=== PATIENT | female | born 1980 | race Caucasian/White ===

== ENCOUNTER 2025-03-25 10:22 | Emergency (ER) | payer OTHER ==
[2025-03-25] MEDS: methylPREDNISolone Sodium Succinate 125 MG/2 ML SDV IVPUSH ONE (10:49)
[2025-03-25] MEDS: Lactated Ringers 1,000 ML IV SCH ×2 (10:49→12:53)
[2025-03-25] MEDS: Famotidine 20 MG/2 ML SDV IVPUSH ONE (10:49)
[2025-03-25] MEDS: Ketorolac 30 MG/ML SDV IVPUSH ONE (13:43)
[2025-03-25 14:40] LABS: BASOPHILS ABSOLUTE AUTO 0.01 K/uL (0.00-0.20); BASOPHILS PERCENT AUTO 0.1 % (0.0-1.0); HEMATOCRIT 38.8 % (37.0-47.0); HEMOGLOBIN 13.4 g/dL (12.0-16.0); IMMATURE GRAN ABSOLUTE AUTO 0.05 K/uL (0.00-0.05); IMMATURE GRAN PERCENT AUTO 0.4 % (0.0-0.4); LYMPHOCYTES ABSOLUTE AUTO 0.63 K/uL (1.00-4.80); LYMPHOCYTES PERCENT AUTO 5.5 % (24.0-44.0); MEAN CORPUSCULAR HEMOGLOBIN 32.8 pg (28.0-32.0); MEAN CORPUSCULAR HGB CONC 34.5 g/dL (32.0-36.0); MEAN CORPUSCULAR VOLUME 95.1 fL (83.0-99.0); MONOCYTES ABSOLUTE AUTO 0.08 K/uL (0.00-0.80); MONOCYTES PERCENT AUTO 0.7 % (0.0-8.0); NEUTROPHILS ABSOLUTE AUTO 10.72 K/uL (1.80-7.70); NEUTROPHILS PERCENT AUTO 93.3 % (41.0-71.0); PLATELET COUNT,PLT 351 K/uL (150-400); RED BLOOD CELL COUNT 4.08 M/uL (4.10-5.30); WHITE BLOOD CELL COUNT,WBC 11.49 K/uL (3.9-11.3)
[2025-03-25 15:12] LABS: ALBUMIN 3.8 g/dL (3.4-5.0); BILIRUBIN TOTAL 0.3 mg/dL (0.2-1.0); CALCIUM 9.6 mg/dL (8.5-10.1); CREATININE 1.2 mg/dL (0.6-1.0); EST CRCL DRUG DOSING (CG) 56.36 mL/min; MAGNESIUM 1.9 mg/dL (1.8-2.4); POTASSIUM,K 3.2 mmol/L (3.5-5.1); PROTEIN TOTAL,TP 7.7 g/dL (6.4-8.2); TSH ULTRASENSITIVE 1.64 uIU/mL (0.36-3.74)
== END 2025-03-25 17:50 | disposition home or self-care (01) ==
LOC: EDBD 10:22 → MW.ED 10:22
DX: T78.40XA Allergy, unspecified, initial encounter (principal); Z75.3 Unavailability and inaccessibility of health-care facilities; Z91.018 Allergy to other foods
CPT/HCPCS: 36415; 71045; 80053; 83735; 83880; 84443; 84484; 85025; 93005; 96374; 96375; 99285; J1885; J2919; J7120; 93010; 99283

== ENCOUNTER 2025-07-13 12:22 | Emergency (ER) | payer BC, OTHER ==
[2025-07-13] MEDS: methylPREDNISolone Sodium Succinate 125 MG/2 ML SDV IVPUSH ONE (12:57)
[2025-07-13] MEDS: Ondansetron 4 MG/2 ML SDV IVPUSH ONE (12:57)
== END 2025-07-13 16:16 | disposition home or self-care (01) ==
LOC: MW.ED 12:22
DX: T78.1XXA Other adverse food reactions, not elsewhere classified, initial encounter (principal); I10 Essential (primary) hypertension; Z88.5 Allergy status to narcotic agent; Z91.018 Allergy to other foods; Z79.899 Other long term (current) drug therapy
CPT/HCPCS: 96374; 96375; 99284; J1308; J2405; J2919

== ENCOUNTER 2025-08-04 12:12 | Emergency (ER) | payer BC ==
[2025-08-04] MEDS: methylPREDNISolone Sodium Succinate 125 MG/2 ML SDV IVPUSH ONE (12:32)
[2025-08-04] MEDS: diphenhydrAMINE 50 MG/ML SDV IVPUSH ONE (12:32)
[2025-08-04] MEDS: Lidocaine 2% Viscous Solution 15 ML UD PO ONE (13:36)
== END 2025-08-04 17:04 | disposition home or self-care (01) ==
LOC: MW.ED 12:12
DX: T78.04XA Anaphylactic reaction due to fruits and vegetables, initial encounter (principal); I10 Essential (primary) hypertension; Z91.018 Allergy to other foods; Z75.3 Unavailability and inaccessibility of health-care facilities; Z79.899 Other long term (current) drug therapy; Z88.5 Allergy status to narcotic agent
CPT/HCPCS: 96361; 96374; 96375; 99284; J1200; J1308; J2919; J3490; J7030; A9270-GY

== ENCOUNTER 2025-08-23 06:41 | Day surgery (SDC) | payer BC ==
[~2025-08-23 06:41] MED LIST: Albuterol 0.083% 2.5 MG/3 ML Neb Soln NEB PRN; Naloxone 0.4 MG/ML SDV IVPUSH PRN; Ondansetron 4 MG/2 ML SDV IVPUSH PRN; Scopalamine 1mg/3day Transdermal Patch ONE; Sodium Chloride 0.9% 10 ML Syringe FLUSH PRN; Sodium Chloride 0.9% 2.5 ML Syringe FLUSH PRN
[2025-08-23] MEDS ORDERED: fentaNYL 100 MCG/2 ML SDV ONE ×2 (06:50→07:45)
[2025-08-23] MEDS ORDERED: Ondansetron 4 MG/2 ML SDV ONE (06:50)
[2025-08-23] MEDS ORDERED: dexmedeTOMIDine HCl 200 MCG/2 ML SDV ONE (06:50)
[2025-08-23] MEDS ORDERED: Lidocaine 2% 11 ML Jelly Filled Syringe ONE (06:53)
[2025-08-23] MEDS ORDERED: propofoL 1,000 MG/100 ML 100 ML ONE (06:58)
[2025-08-23] MEDS ORDERED: Ropivacaine 0.5% 5 MG/ML 30 ML SDV ONE (07:03)
[2025-08-23] MEDS: Lactated Ringers 1,000 ML IV SCH (07:10)
[2025-08-23 07:20] LABS: MEAN PLATELET VOLUME 10.4 fL (9.4-12.3); NRBC ABSOLUTE 0.00 K/uL (0.00-0.02); NRBC PERCENT 0.0 /100WBC (0.0-0.2); PLATELET COUNT,PLT 311 K/uL (150-400); RED BLOOD CELL COUNT 4.16 M/uL (4.10-5.30); WHITE BLOOD CELL COUNT,WBC 5.25 K/uL (3.9-11.3)
[2025-08-23 07:39] LABS: BLOOD UREA NITROGEN,BUN 17.0 mg/dL (7.0-18.0); CARBON DIOXIDE,CO2 24.2 mmol/L (21.0-32.0); CHLORIDE,CL 103.0 mmol/L (98-107); CREATININE 1.0 mg/dL (0.6-1.0); EST CRCL DRUG DOSING (CG) 67.63 mL/min; GLUCOSE RANDOM 102.0 mg/dL (74-106); POTASSIUM,K 3.4 mmol/L (3.5-5.1); SODIUM,NA 138.0 mmol/L (136-145)
[2025-08-23 07:46] LABS: ESTIMATED GFR 70.0 mL/min (>60)
[2025-08-23] MEDS ORDERED: Fluorescein 5 ML Vial ONE (08:54)
[2025-08-23] MEDS ORDERED: Acetaminophen/oxyCODONE 325-5 MG Tab PO PRN (09:09)
[2025-08-23] MEDS ORDERED: ePHEDrine 50 MG/ML SDV ONE (09:11)
[2025-08-23] MEDS: Promethazine 25 MG/ML SDV IM PRN (09:50)
[2025-08-23] MEDS: fentaNYL 50 MCG/ML SDV IVPUSH PRN (10:02)
[2025-08-23] MEDS: ceFAZolin 2 GM in Water For Injection, Sterile 20 ML IVPUSH ONE (13:54)
[2025-08-23] MEDS: Scopalamine 1mg/3day Transdermal Patch TOP ONE (13:54)
[2025-08-23] MEDS: Acetaminophen/oxyCODONE 325-5 MG Tab PO PRN (14:10)
[2025-08-23] MEDS: Ketorolac 30 MG/ML SDV IVPUSH PRN (17:20)
[2025-08-23] MEDS: Ondansetron 4 MG/2 ML SDV IVPUSH PRN (17:20)
[2025-08-23] MEDS ORDERED: diphenhydrAMINE 50 MG/ML SDV IVPUSH PRN (19:27)
[2025-08-24 05:53] LABS: BASOPHILS ABSOLUTE AUTO 0.02 K/uL (0.00-0.20); BASOPHILS PERCENT AUTO 0.2 % (0.0-1.0); EOSINOPHILS ABSOLUTE AUTO 0.00 K/uL (0.00-0.45); EOSINOPHILS PERCENT AUTO 0.0 % (0.0-6.0); IMMATURE GRAN ABSOLUTE AUTO 0.04 K/uL (0.00-0.05); IMMATURE GRAN PERCENT AUTO 0.3 % (0.0-0.4); LYMPHOCYTES ABSOLUTE AUTO 1.85 K/uL (1.00-4.80); LYMPHOCYTES PERCENT AUTO 15.2 % (24.0-44.0); MEAN PLATELET VOLUME 11.0 fL (9.4-12.3); MONOCYTES ABSOLUTE AUTO 0.84 K/uL (0.00-0.80); MONOCYTES PERCENT AUTO 6.9 % (0.0-8.0); NEUTROPHILS ABSOLUTE AUTO 9.43 K/uL (1.80-7.70); NEUTROPHILS PERCENT AUTO 77.4 % (41.0-71.0); NRBC ABSOLUTE 0.00 K/uL (0.00-0.02); NRBC PERCENT 0.0 /100WBC (0.0-0.2); PLATELET COUNT,PLT 274 K/uL (150-400); RED BLOOD CELL COUNT 3.47 M/uL (4.10-5.30); WHITE BLOOD CELL COUNT,WBC 12.18 K/uL (3.9-11.3)
[2025-08-24 06:19] LABS: BLOOD UREA NITROGEN,BUN 18.0 mg/dL (7.0-18.0); CARBON DIOXIDE,CO2 24.5 mmol/L (21.0-32.0); CHLORIDE,CL 107.0 mmol/L (98-107); CREATININE 1.1 mg/dL (0.6-1.0); EST CRCL DRUG DOSING (CG) 61.48 mL/min; GLUCOSE RANDOM 113.0 mg/dL (74-106); POTASSIUM,K 3.6 mmol/L (3.5-5.1); SODIUM,NA 142.0 mmol/L (136-145)
[2025-08-24 06:22] LABS: ESTIMATED GFR 62.0 mL/min (>60)
== END 2025-08-24 11:05 | disposition home or self-care (01) ==
LOC: MW.MS 06:41 → MW.SDS 06:41 → MW.MS 12:41 → UNDOADMIN 12:41 → MW.SDS 08-24 11:05
PROVIDERS: ATTEND Obstetrics & Gynecology
DX: D25.9 Leiomyoma of uterus, unspecified (principal); N87.9 Dysplasia of cervix uteri, unspecified; N72 Inflammatory disease of cervix uteri; N80.03 Adenomyosis of the uterus; I10 Essential (primary) hypertension; E66.9 Obesity, unspecified; Z88.8 Allergy status to other drugs, medicaments and biological substances; Z88.5 Allergy status to narcotic agent; Z68.33 Body mass index [BMI] 33.0-33.9, adult; Z79.899 Other long term (current) drug therapy
CPT/HCPCS: 00944; 36415; 80048; 84703; 85025; 85027; 86850; 86900; 86901; A9270-GY; J0665; J1171; J1308; J1885; J2003; J2371; J2405; J2550; J2704; J2765; J2795; J3010; J3490; J7120